=== PATIENT | female | born 1965 | race Caucasian/White ===

== ENCOUNTER 2017-08-17 22:38 | Emergency (ER) | payer OTHER ==
[~2017-08-17] VITALS: Ht 165.1 cm; Wt 102.1 kg
[~2017-08-17 22:38] MED LIST: ACETAMINOPHEN-1 EAC1 PO; CARAFATE 1 GM TA1 G1 PO; CELEXA20 MG PO; CIPRO500 MG PO; CIPROFLOXACIN500 M1 PO; COLACE100 MG PO; FLAGYL500 MG PO; FLEXERIL PO; HYDROCODON-ACE1 EAC7 PO; IBUPROFEN 800800 M1 PO; IBUPROFEN 800800 MG PO; LIDOCAINE VISC100 M1 SWISH&SPIT; NAPROSYN500 MG PO; NICOTINE PATCH1 EAC1 TRANSDERM; NOHOMEMEDICATIONS; PENICILLIN VK500 M1 PO; PEPCID20 MG PO; PERCOCET 5-3251 EACH PO; PERCOCET 7.5-31 EACH PO; PERCOCET PO; PROBIOTIC1 EAC1 PO; PROTONIX40 M1 PO; PROZAC 20 MG20 M1 PO; PROZAC20 MG PO; SEROQUEL 50 MG50 MG PO; TAMSULOSIN HCL0.4 M1 PO; TRAMADOL 50 MG50 MG PO; ULTRAM 50MG TAB50 MG PO; ZOFRAN ODT4 MG PO
[2017-08-17 22:48] VITALS: BP 154/100
[2017-08-17] MEDS ORDERED: NIZORAL120 ML TOP (23:06)
== END 2017-08-17 23:21 | disposition home or self-care (01) ==
LOC: M.ERS 22:38
DX: L21.9 Seborrheic dermatitis, unspecified (principal); F41.9 Anxiety disorder, unspecified; F31.9 Bipolar disorder, unspecified; F17.210 Nicotine dependence, cigarettes, uncomplicated; Z87.442 Personal history of urinary calculi; Z88.5 Allergy status to narcotic agent